=== PATIENT | male | born 1980 | race Caucasian/White ===

== ENCOUNTER → 2017-02-11 | Outpatient (CLI) | payer BC ==
[~2017-02-11] MED LIST: OPTIRAY 320 IV PRN; PANT40TA PO
--- NOTE | 2017-02-11 17:15 | DIAGNOSTIC IMAGING REPORT ---
CT OF THE ABDOMEN AND PELVIS WITH CONTRAST CLINICAL HISTORY: Right lower quadrant abdominal pain. COMPARISON STUDY: None. TECHNIQUE: Following IV administration of 95 mL of Optiray-320, axial images of the abdomen and pelvis were obtained from the lung bases to the proximal femurs. Images were reviewed in the axial, sagittal, and coronal planes. IV contrast was administered without complication. A dose lowering technique was utilized adhering to the principles of ALARA. Oral contrast was administered. CT DOSE: 311.45 mGy.cm FINDINGS: Lung bases are clear. 2 hypodense right hepatic lobe lesions which demonstrate nodular peripheral enhancement are similar to CT of May 01, 2011. These reflect hemangiomas and are benign. The spleen, adrenal glands, kidneys and pancreas are normal. There is no biliary or pancreatic ductal dilatation. There is no peripancreatic or pericholecystic infiltration. The caliber and wall thickness of small and large bowel are normal. The appendix is normal. Equivocal mesenteric infiltration associated with several jejunal loops within the left mid abdomen is likely within normal limits. No pneumatosis, free air or portal venous gas is present. No suspicious osseous lesion is identified. IMPRESSION: 1. Normal appendix. No bowel obstruction. 2. Equivocal mild mesenteric infiltration associated with several left mid abdomen jejunal loops. This finding likely reflects normal vessels although a nonspecific enteritis could appear similar. 3. Right hepatic lobe hemangiomas. Electronically signed by: Chris Jameson M.D. 02/11/2017 5:14 PM Dictated Date/Time: 02/11/2017 5:06 PM
== END | disposition home or self-care (01) ==
LOC: C.CTS 14:48
PROVIDERS: ATTEND Nurse Practitioner
DX: R10.31 Right lower quadrant pain (principal)